=== PATIENT | male | born 1990 ===

== ENCOUNTER 2018-09-27 07:35 | Emergency (ER) | payer OTHER ==
[2018-09-27 07:44] VITALS: RESP 18
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
[2018-09-27 10:48] VITALS: BP 139/78; PULSE 88; TEMP 97.8
[2018-09-27 10:49] VITALS: O2SAT 100
== END 2018-09-27 09:45 | disposition home or self-care (01) ==
LOC: C.ER 07:35
DX: S16.1XXA Strain of muscle, fascia and tendon at neck level, initial encounter (principal); V49.9XXA Car occupant (driver) (passenger) injured in unspecified traffic accident, initial encounter